=== PATIENT | female | born 1980 | race Caucasian/White ===

== ENCOUNTER 2025-07-19 06:02 | Day surgery (SDC) | payer OTHER, SELFPAY ==
[2025-07-06 09:21] VITALS: BMI 19.6
[2025-07-19] VITALS (8 sets, daily range): BP systolic 109–125; BP diastolic 78–87; PULSE 79–87; RESP 14–18; TEMP 36.2–36.6; O2SAT 100
--- OUTSIDE RECORDS SUMMARY | 2025-07-19 06:07 | XMS_ITS | Encounter Summary ---
Author Organization [facility] Address [address] [place] [address] Care Team Providers Care House Repairer Name Role Phone Jaqueline Lopez MD Primary Care Provider [phone] Jaqueline Lopez MD Unavailable [phone] Reason for Visit * Reason Onset Date Comments MEDICATION REFILL 07/11/2019 Encounter Details Date Type Department Care Team (Late st Contact Info) Description 07/11/2019 Refill [facility] - Family Medicine [address] [place] [phone] Jaqueline Lopez MD [address] [place] [address] MEDICATION REFILL Social History Tobacco Use Types Packs/Day Years Used Date Smoking Tobacco: Every Day Cigarettes 0.5 16 Smokeless Tobacco: Never Alcohol Use Standard Drinks/Week Comments Yes 0 (1 standard drink = 0.6 oz pur e alcohol) Comments No Sex and Gender Information Value Date Recorded Sex Assigned at Not on file Legal Sex Female 6:49 AM LEAD 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 Gender Identity Not on file Sexual Orientation Not on file documented as of this encounter Plan of Treatment Not on file documented as of this encounter Visit Diagnoses Diagnosis Sinus tachycardia Other specified cardiac dysrhythmias documented in this encounter Additional Health Concerns Infection Onset Date Last Indicated Resolved Time COVID-19 Confirmed 08/15/2021 08/15/2021 4:33 AM LEAD NUCLEAR 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 COVID-19 Confirmed 05/28/2022 05/28/2022202 2 4:33 AM CDT documented as of this encounter Care Teams House Repairer Relationship Specialty Start Date End Date Jaqueline Lopez MD [address] [place] [address] PCP - General Family Medicine 09/17/17 Jaqueline Lopez MD [address] [place] [address] PCP - Attributed-[facility] 09/14/19 04/29/21 documented as of this encounter
--- OUTSIDE RECORDS SUMMARY | 2025-07-19 06:07 | XMS_ITS | Encounter Summary ---
Author Organization [facility] Address [address] [place] [address] Care Team Providers Care Cosmetic Consultant Name Role Phone Jaqueline Lopez MD Primary Care Provider [phone] Jaqueline Lopez MD Unavailable [phone] Reason for Visit * Reason Onset Date Comments MEDICATION REFILL 09/04/2019 Encounter Details Date Type Department Care Team (Late st Contact Info) Description 09/04/2019 Refill [facility] - Family Medicine [address] [place] [phone] Jaqueline Lopez MD [address] [place] [address] MEDICATION REFILL Social History Tobacco Use Types Packs/Day Years Used Date Smoking Tobacco: Every Day Cigarettes 0.5 16 Smokeless Tobacco: Never Alcohol Use Standard Drinks/Week Comments Yes 0 (1 standard drink = 0.6 oz pur e alcohol) Comments No Sex and Gender Information Value Date Recorded Sex Assigned at Not on file Legal Sex Female 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 Gender Identity Not on file Sexual Orientation Not on file documented as of this encounter Plan of Treatment Not on file documented as of this encounter Visit Diagnoses Diagnosis Sinus tachycardia Other specified cardiac dysrhythmias documented in this encounter Additional Health Concerns Infection Onset Date Last Indicated Resolved Time COVID-19 Confirmed 08/15/2021 08/15/2021 4:33 AM WINDOW SHADE INSTALLER COVID-19 Confirmed 05/28/2022 05/28/2022202 2 4:33 AM CDT documented as of this encounter Care Teams Cosmetic Consultant Relationship Specialty Start Date End Date Jaqueline Lopez MD [address] [place] [address] PCP - General Family Medicine 09/17/17 Jaqueline Lopez MD [address] [place] [address] PCP - Attributed-[facility] 09/14/19 04/29/21 documented as of this encounter
--- OUTSIDE RECORDS SUMMARY | 2025-07-19 06:07 | XMS_ITS | Encounter Summary ---
Author Organization [facility] Address [address] [facility] [place] [address] Care Team Providers Care Electric Motor Winder Name Role Phone Jaqueline Lopez MD Primary Care Provider [phone] Jaqueline Lopez MD Unavailable [phone] Reason for Visit * Reason Onset Date Comments MEDICATION REFILL 01/10/2020 Encounter Details Date Type Department Care Team (Late st Contact Info) Description 01/10/2020 Refill [facility] - Family Medicine [address] [place] [phone] Jaqueline Lopez MD [address] [place] [address] MEDICATION REFILL Social History Tobacco Use Types Packs/Day Years Used Date Smoking Tobacco: Every Day Cigarettes 0.5 16 Smokeless Tobacco: Never Alcohol Use Standard Drinks/Week Comments Yes 0 (1 standard drink = 0.6 oz pur e alcohol) Comments No Sex and Gender Information Value Date Recorded Sex Assigned at Not on file Legal 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 Gender Identity Not on file Sexual Orientation Not on file documented as of this encounter Plan of Treatment Not on file documented as of this encounter Visit Diagnoses Diagnosis Depression, unspecified depression type Sinus tachycardia Other specified cardiac dysrhythmias documented in this encounter Additional Health Concerns Infection Onset Date Last Indicated Resolved Time COVID-19 Confirmed 08/15/2021 08/15/2021 4:33 AM AUTO PARTS CLERK COVID-19 Confirmed 05/28/2022 05/28/2022 4:33 AM CDT documented as of this encounter Care Teams Electric Motor Winder Relationship Specialty Start Date End Date Jaqueline Lopez MD [address] [place] [address] PCP - General Family Medicine 09/17/17 Jaqueline Lopez MD [address] [place] [address] PCP - Attributed[facility] 09/14/19 04/29/21 documented as of this encounter
--- OUTSIDE RECORDS SUMMARY | 2025-07-19 06:07 | XMS_ITS | Encounter Summary ---
Author Organization [facility] Address [address] [place] [address] Care Team Providers Care Veterinary Bacteriologist Name Role Phone Jaqueline Lopez MD Primary Care Provider [phone] Jaqueline Lopez MD Unavailable [phone] Reason for Visit * Reason Onset Date Comments MEDICATION REFILL 01/07/2020 Encounter Details Date Type Department Care Team (Late st Contact Info) Description 01/07/2020 Refill [facility] - Family Medicine [address] [place] [phone] Jaqueline Lopez MD [address] [place] [address] MEDICATION REFILL Social History Tobacco Use Types Packs/Day Years Used Date Smoking Tobacco: Every Day Cigarettes 0.5 16 Smokeless Tobacco: Never Alcohol Use Standard Drinks/Week Comments Yes 0 (1 standard drink = 0.6 oz pur e alcohol) Comments No Sex and Gender Information Value Date Recorded Sex Assigned at Not on file Legal Sex Female 6:49 AM PHOTOGRAPH 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 Gender Identity Not on file Sexual Orientation Not on file documented as of this encounter Plan of Treatment Not on file documented as of this encounter Visit Diagnoses Diagnosis Depression, unspecified depression type documented in this encounter Additional Health Concerns Infection Onset Date Last Indicated Resolved Time COVID-19 Confirmed 08/15/2021 08/15/2021 1 4:33 AM PHOTOGRAPH ENLARGER COVID-19 Confirmed 05/28/2022 05/28/2022 2 4:33 AM CDT documented as of this encounter Care Teams Veterinary Bacteriologist Relationship Specialty Start Date End Date Jaqueline Lopez MD [address] [place] [address] PCP - General Family Medicine 09/17/17 Jaqueline Lopez MD [address] [place] [address] PCP - Attributed[facility] 09/14/19 04/29/21 documented as of this encounter
--- OUTSIDE RECORDS SUMMARY | 2025-07-19 06:07 | XMS_ITS | Encounter Summary ---
Author Organization [facility] Address [address] [facility] [place] [address] Care Team Providers Care Hospice Office Coordinator Name Role Phone Jaqueline Lopez MD Primary Care Provider Reason for Visit * Reason Onset Date Comments MEDICATION REFILL 01/22/2023 Encounter Details Date Type Department Care Team (Late st Contact Info) Description 01/22/2023 Refill [facility] - Family Medicine [address] [place] [address] Jaqueline Lopez MD [address] [place] [phone] MEDICATION REFILL Social History Tobacco Use Types Packs/Day Years Used Date Smoking Tobacco: Every Day Cigarettes 0.5 16 Smokeless Tobacco: Never Alcohol Use Standard Drinks/Week Comments Yes 0 (1 standard drink = 0.6 oz pur e alcohol) PHQ-2 Answer Date Recorded PHQ2 TOTAL SCORE 0 02/19/2021 Comments No Sex and Gender Information Value Date Recorded Sex Assigned at Not on file Legal Sex Female 6:49 AM 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 LEVEL 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 Gender Identity Not on file Sexual Orientation Not on file documented as of this encounter Miscellaneous Notes * Telephone Encounter - Katherine Dodson LPN - 01/22/2023 2:27 PM CDT Last ov 02/19/21 documented in this encounter Plan of Treatment Not on file documented as of this encounter Visit Diagnoses Diagnosis Sinus tachycardia Other specified cardiac dysrhythmias PURVI (generalized anxiety disorder) Generalized anxiety disorder documented in this encounter Care Teams Hospice Office Coordinator Relationship Specialty Start Date End Date Jaqueline Lopez MD [address] [place] [address] PCP - General Family Medicine 09/17/17 documented as of this encounter
--- OUTSIDE RECORDS SUMMARY | 2025-07-19 06:07 | XMS_ITS | Encounter Summary ---
Author Organization [facility] Address [address] [place] [address] Care Team Providers Care Battery Mechanic Name Role Phone Jaqueline Lopez MD Primary Care Provider [phone] Jaqueline Lopez MD Unavailable [phone] Reason for Visit * Reason Onset Date Comments MEDICATION REFILL 08/19/2019 Encounter Details Date Type Department Care Team (Late st Contact Info) Description 08/19/2019 Refill [facility] - Family Medicine [address] [place] [phone] Jaqueline Lopez MD [address] [place] [phone] MEDICATION REFILL Social History Tobacco Use Types Packs/Day Years Used Date Smoking Tobacco: Every Day Cigarettes 0.5 16 Smokeless Tobacco: Never Alcohol Use Standard Drinks/Week Comments Yes 0 (1 standard drink = 0.6 oz pur e alcohol) Comments No Sex and Gender Information Value Date Recorded Sex Assigned at Not on file Legal Sex Female 6:49 AM EVP MARKETING Gender Identity Not on file Sexual Orientation Not on file documented as of this encounter Plan of Treatment Not on file documented as of this encounter Visit Diagnoses Not on filedocumented in this encounter Additional Health Concerns Infection Onset Date Last Indicated Resolved Time COVID-19 Confirmed 08/15/2021 08/15/2021 1 4:33 AM EVP MARKETING COVID-19 Confirmed 05/28/2022 05/28/2022 2 4:33 AM CDT documented as of this encounter Care Teams Battery Mechanic Relationship Specialty Start Date End Date Jaqueline Lopez MD [address] [place] [address] PCP - General Family Medicine 09/17/17 Jaqueline Lopez MD [address] [place] [address] PCP - Attributed-[facility] 09/14/19 04/29/21 documented as of this encounter
--- OUTSIDE RECORDS SUMMARY | 2025-07-19 06:07 | XMS_ITS | Data Portability ---
Author Organization [facility] Address [place] [address] Assessment No assessment recorded. Plan of Treatment Reminders Order Date Submit Date Provider Last Modified By Organization Details Last Modified Time Details Appointments None recorded. Lab CBC 2023 [facility] (Lab), [address], [place], [address], 4 10:54:38 CMP, serum or plasma 2023 024 [facility] (Lab), [address], [place], [address], 4 10:59:08 amylase, serum or plasma 2023 024 [facility] (Lab), [address], [place], [address], 4 10:59:12 lipase, serum or plasma 2023 024 [facility] (Lab), [address], [place], [address], 4 10:59:16 ESR (erythrocyt e sedimentati on rate), blood 2023 024 [facility] (Lab), [address], [place], [address], 11:05:23 Referral None recorded. Procedures None recorded. Surgeries None recorded. Imaging None recorded. Medication Orders None recorded. Patient TargetsNo targets recorded. Patient Instructions Encounter Date Encounter Id Patient Instructions Last Modified By Organization Details Last Modified Time 09/11/2017 [id number] Get the Holter Monitor placed in Cardio-Pulmonary department. No caffeine and continue cutting back on smoking. Stay well hydrated, and add a banana or an orange to your diet daily. Return here if worse or follow up with your doctor next week. [email or web address] Not available 09/12/2017 00:38:47 02/05/2024 [id number] diarrhea: care instructions [facility] Not available 02/05/2024 11:08:13 abdominal pain: care instructions [place] [id number] Not available 02/05/2024 11:08:13 push po fluids. BRAT diet today followed by bland diet next 72 hours. IF diarrhea persists drink 6-8 oz of Gatorade. Follow-up for persistent fever, unable to tolerate fluids, vomiting blood, blood in stools, increased ABD pain, or if not improving over next 3 days [facility] Not available 02/05/2024 11:15:27 If not improving over next 2-3 days, we can send in orders for stool specimen collections. [place] [id number] Not available 02/05/2024 11:15:15 Hospital Discharge Instructions Patient Instructions Get the Holter Monitor placed in Cardio-Pulmonary department. No caffeine and continue cutting back on smoking. Stay well hydrated, and add a banana or an orange to your diet daily. Return here if worse or follow up with your doctor next week. Patient Goals None recorded. Results Created Date Observation Date Name Description Value Unit Range Abnormal Flag Note LastModifiedBy Organization Detail LastModifiedTime 09/11/20 17 09/11/2017 parti al throm bopla stin time PTT 24.5 SEC 19.0-3 3.0 Not Available Not Available Not Available 09/11/20 17 09/11/2017 Tropo geri I.car diac [Mass /volu me] in Serum or Plasm a TROPONIN 0.014 ng/ml 0.000- 0.034 Tropo geri I Refer ence Range : >0.03 4 ng/mL [facility] Myoca rdial Damag e >0.12 0 Stron gly [facility] Myoca rdial Infar ction . Not Available Not Available Not Available 09/11/20 17 09/11/2017 Natri ureti c pepti de B [Mass /volu me] in Blood BN-PEPT. 6.6 pg/ml 0.0-10 0.0 Not Available Not Available Not Available 09/11/20 17 09/11/2017 Natri ureti c pepti de B [Mass /volu me] in Blood Unknown Analyte Amy l Refer ence Range = <100 pg/mL N.Y.H .A. HF Class ifica tion: Class I = 100-2 00 pg/mL Class II = 201-2 50 pg/mL Class III = 251-6 00 pg/mL Class IV = >600 pg/mL Not Available Not Available Not Available 09/11/20 17 09/11/2017 PT/IN R INR 1.01 0.80-1 .20 Indic ation INR __ Proph ylaxi s/lissy atmen t of: --Martín ous Throm bosis , Pulmo nary Embol ism 2.0 - 3.0 Preve ntion of syste trini embol ism from: --Tis alexis heart valve s 2.0 - 3.0 --Acu te myoca rdial infar ction (to prese nt syste trini embol ism*) 2.0 - 3.0 --Gloria vular heart disea se 2.0 - 3.0 --Atr ial Fibri llati on 2.0 - 3.0 Mecha nical prost hetic valve s (high risk) 2.5 - 3.5 __ *if oral antic oagul ant thera py is elect ed to preve nt recur rent myoca rdial infar ction , an INR of 2.5 - 3.5 is recom chema d, consi stent with Food and Drug Admin istra tion recom menda tions . Not Available Not Available Not Available 09/11/20 17 09/11/2017 Myogl obin [Mass /volu me] in Serum or Plasm a ARMAND 20.1 ng/ml 0.0-10 1.0 Not Available Not Available Not Available 09/11/20 17 09/11/2017 Thyro tropi n [Unit s/vol ume] in Serum or Plasm a TSH 2.79 uIu/m L 0.47-4 .68 Not Available Not Available Not Available 09/11/20 17 09/11/2017 Magne sium [Mass /volu me] in Serum or Plasm a MG 1.9 mg/dl 1.6-2. 3 Not Available Not Available Not Available 09/11/20 17 09/11/2017 CBC panel - Blood by Autom ated count WBC 9.8 10*3 3.9-10 .4 Not Available Not Available Not Available 09/11/20 17 09/11/2017 CBC panel - Blood by Autom ated count RBC 4.19 10*6 3.78-5 .29 Not Available Not Available Not Available 09/11/20 17 09/11/2017 CBC panel - Blood by Autom ated count HGB 13.4 g/dl 12.0-1 6.0 Not Available Not Available Not Available 09/11/20 17 09/11/2017 CBC panel - Blood by Autom ated count HCT 39.4 % 37.0-4 7.0 Not Available Not Available Not Available 09/11/20 17 09/11/2017 CBC panel - Blood by Autom ated count MCV 94.0 fl 82.0-1 00.0 Not Available Not Available Not Available 09/11/20 17 09/11/2017 CBC panel - Blood by Autom ated count MCH 32 pg 26-33 Not Available Not Availa ble Not Available 09/11/20 17 09/11/2017 CBC panel - Blood by Autom ated count MCHC 34 g/dl 31-34 Not Available Not Availa ble Not Available 09/11/20 17 09/11/2017 CBC panel - Blood by Autom ated count RDW 12.3 % 11.8-1 5.7 Not Available Not Available Not Available 09/11/20 17 09/11/2017 CBC panel - Blood by Autom ated count PLT 250 10*3 150-45 0 Not Available Not Available Not Available 09/11/20 17 09/11/2017 CBC panel - Blood by Autom ated count MPV 10.3 fl 8.7-12 .2 Not Available Not Available Not Available 09/11/20 17 09/11/2017 CBC panel - Blood by Autom ated count NEUT% 46.3 % 40.0-7 5.0 Not Available Not Available Not Available 09/11/20 17 09/11/2017 CBC panel - Blood by Autom ated count IMGRANS% 0.2 % 0.0-2. 0 Not Available Not Available Not Available 09/11/20 17 09/11/2017 CBC panel - Blood by Autom ated count LYMPH% 42.4 % 20.0-4 0.0 Not Available Not Available Not Available 09/11/20 17 09/11/2017 CBC panel - Blood by Autom ated count MONO% 8.3 % 0.0-10 .0 Not Available Not Available Not Available 09/11/20 17 09/11/2017 CBC panel - Blood by Autom ated count EOS% 2.1 % 0.0-4. 0 Not Available Not Available Not Available 09/11/20 17 09/11/2017 CBC panel - Blood by Autom ated count BASOS% 0.7 % 0.0-1. 0 Not Available Not Available Not Available 09/11/20 17 09/11/2017 CBC panel - Blood by Autom ated count ANC 4.54 10^3/ uL 1.50-8 .00 Not Available Not Available Not Available 09/11/20 17 09/11/2017 CBC panel - Blood by Autom ated count _ Not Available Not Availa ble Not Available 09/11/20 17 09/11/2017 Compr ehens raegan metab olic 2000 panel - Serum or Plasm a NA 142 mmol/ L 137-14 5 Not Available Not Available Not Available 09/11/20 17 09/11/2017 Compr ehens raegan metab olic 2000 panel - Serum or Plasm a K+ 3.3 mmol/ L 3.5-5. 1 Not Available Not Available Not Available 09/11/20 17 09/11/2017 Compr ehens raegan metab olic 2000 panel - Serum or Plasm a CL 102 mmol/ L 98-107 Not Available Not Available Not Avai lable 09/11/20 17 09/11/2017 Compr ehens raegan metab olic 2000 panel - Serum or Plasm a CO2 26 mmol/ L 22-30 Not Available Not Available Not Avai lable 09/11/20 17 09/11/2017 Compr ehens raegan metab olic 2000 panel - Serum or Plasm a GLUC 100 mg/dL 70-106 Not Available Not Availa ble Not Available 09/11/20 17 09/11/2017 Compr ehens raegan metab olic 2000 panel - Serum or Plasm a BUN 12.0 mg/dL 7.0-17 .0 Not Available Not Available Not Available 09/11/20 17 09/11/2017 Compr ehens raegan metab olic 2000 panel - Serum or Plasm a CREAT 0.7 mg/dl 0.5-1. 0 Not Available Not Available Not Available 09/11/20 17 09/11/2017 Compr ens raegan metab olic 2000 panel - Serum or Plasm a ALK.PHOS 64 U/L 38-126 Not Available Not Avail able Not Available 09/11/20 17 09/11/2017 Compr ehens raegan metab olic 2000 panel - Serum or Plasm a ALT 35 U/L 9-52 Not Available Not Availa ble Not Available 09/11/20 17 09/11/2017 Compr ehens raegan metab olic 2000 panel - Serum or Plasm a AST 24 U/L 14-36 Not Available Not Availa ble Not Available 09/11/20 17 09/11/2017 Compr ehens raegan metab olic 2000 panel - Serum or Plasm a ALB 4.8 g/dl 3.5-5. 0 Not Available Not Available Not Available 09/11/20 17 09/11/2017 Compr ehens raegan metab olic 2000 panel - Serum or Plasm a TBIL 0.50 mg/dl 0.20-1 .30 Not Available Not Available Not Available 09/11/20 17 09/11/2017 Compr ehens raegan metab olic 2000 panel - Serum or Plasm a TP 7.6 g/dl 6.3-8. 2 Not Available Not Available Not Available 09/11/20 17 09/11/2017 Compr ehens raegan metab olic 2000 panel - Serum or Plasm a CA 9.7 mg/dl 8.4-10 .2 Not Available Not Available Not Available 09/11/20 17 09/11/2017 Compr ehens raegan metab olic 2000 panel - Serum or Plasm a GAP 14.0 mmol/ L 8.0-16 .0 Not Available Not Available Not Available 09/11/20 17 09/11/2017 Compr ehens raegan metab olic 2000 panel - Serum or Plasm a B/C 17.14 7.00-3 0.00 Not Available Not Available Not Available 09/11/20 17 09/11/2017 Compr ehens raegan metab olic 2000 panel - Serum or Plasm a OSMO 283 mos/k g 273-30 4 Not Available Not Available Not Available 09/11/20 17 09/11/2017 Compr ehens raegan metab olic 2000 panel - Serum or Plasm a A/G RATIO 1.71 0.90-2 .30 Not Available Not Available Not Available 09/11/20 17 09/11/2017 Compr ehens raegan metab olic 2000 panel - Serum or Plasm a GLOBULIN 2.8 g/dl 2.2-3. 9 Not Available Not Available Not Available 09/11/20 17 09/11/2017 Compr ehens raegan metab olic 2000 panel - Serum or Plasm a GFR- OTHER Greate r Than 60 mL/mi n/1.7 3_m^2 Not Available Not Available Not Avai lable 09/11/20 17 09/11/2017 Compr ehens raegan metab olic 2000 panel - Serum or Plasm a GFR- AA Greate r Than 60 mL/mi n/1.7 3_m^2 It is recom chema d that for: GFR value s great er than 60 mL/mi n/1.7 3 sq.me ters - no addit ional renal evalu ation is requi red GFR value s less than 60 mL/mi n/1.7 3 sq.me ters - compl ete evalu ation for renal disea se GFR value s less than 60 mL/mi n/1.7 3 sq.me ters - consu ltati on with a Nephr ologi st Not Available Not Available Not Available 09/11/20 17 09/11/2017 Thyro xine (T4) free [Mass /volu me] in Serum or Plasm a T4 FREE 1.0 ng/dL 0.8-2. 2 Not Available Not Available Not Available 09/11/20 17 09/11/2017 Fibri n D-dim er FEU [Mass /volu me] in Plate let poor plasm a D-DIMER TRIAGE <100.0 ng/mL 0.0-39 9.0 Expec татьяна Range : Less Than 400 ng/mL Not Available Not Available Not Available 02/05/20 24 02/05/2024 Compr ehens raegan metab olic 2000 panel - Serum or Plasm a NA 136 mmol/ L 137-14 5 Not Available [facility] (Lab) [address], [place], [address], Not Available 02/05/20 24 02/05/2024 Compr ehens raegan metab olic 2000 panel - Serum or Plasm a K+ 3.8 mmol/ L 3.5-5. 1 Not Available [facility] (Lab) [address], [place], [address], Not Available 02/05/20 24 02/05/2024 Compr ehens raegan metab olic 2000 panel - Serum or Plasm a CL 104 mmol/ L 98-107 Not Available [facility] (Lab) [address], [place], [address], Not Available 02/05/20 24 02/05/2024 Compr ehens raegan metab olic 2000 panel - Serum or Plasm a CO2 23 mmol/ L 22-30 Not Available [facility] (Lab) [address], [place], [address], Not Available 02/05/20 24 02/05/2024 Compr ehens raegan metab olic 2000 panel - Serum or Plasm a GLUC 99 mg/dL 70-106 Not Available [facility] (Lab) [address], [place], [address], Not Available 02/05/20 24 02/05/2024 Compr ehens raegan metab olic 2000 panel - Serum or Plasm a BUN 13.0 mg/dL 7.0-17 .0 Not Available [facility] (Lab) [address], [place], [address], Not Available 02/05/20 24 02/05/2024 Compr ehens raegan metab olic 2000 panel - Serum or Plasm a CREAT 0.7 mg/dl 0.5-1. 0 Not Available [facility] (Lab) [address], [place], [address], Not Available 02/05/20 24 02/05/2024 Compr ehens raegan metab olic 2000 panel - Serum or Plasm a ALK.PHOS 70 U/L 38-126 Not Available [facility] (Lab) [address], [place], [address], Not Available 02/05/20 24 02/05/2024 Compr ehens raegan metab olic 2000 panel - Serum or Plasm a ALT 17 U/L 1-34 Not Available [facility] (Lab) [address], [place], [address], Not Available 02/05/20 24 02/05/2024 Compr ehens raegan metab olic 2000 panel - Serum or Plasm a AST 25 U/L 14-36 Not Available [facility] (Lab) [address] [place], [address], Not Available 02/05/20 24 02/05/2024 Compr ehens raegan metab olic 2000 panel - Serum or Plasm a ALB 4.7 g/dl 3.5-5. 0 Not Available [facility] (Lab) [address], [place], [address], Not Available 02/05/20 24 02/05/2024 Compr ehens raegan metab olic 2000 panel - Serum or Plasm a TBIL 1.20 mg/dl 0.20-1 .30 Not Available [facility] (Lab) [address], [place], [address], Not Available 02/05/20 24 02/05/2024 Compr ehens raegan metab olic 1999 panel - Serum or Plasm a TP 7.8 g/dl 6.3-8. 2 Not Available [facility] (Lab) [address], [place], [address], Not Available 02/05/20 24 02/05/2024 Compr ehens raegan metab olic 1999 panel - Serum or Plasm a CA 9.2 mg/dl 8.4-10 .2 Not Available [facility] (Lab) [address], [place], [address], Not Available 02/05/20 24 02/05/2024 Compr ehens raegan metab olic 2000 panel - Serum or Plasm a GAP 9.0 mmol/ L 6.0-16 .0 Not Available [facility] (Lab) [address], [place], [address], Not Available 02/05/20 24 02/05/2024 Compr ehens raegan metab olic 1999 panel - Serum or Plasm a B/C 18.57 7.00-3 0.00 Not Available [facility] (Lab) [address], [place], [address], Not Available 02/05/20 24 02/05/2024 Compr ehens raegan metab olic 1999 panel - Serum or Plasm a OSMO 272 mos/k g 273-30 4 Not Available [facility] (Lab) [address], [place], [address], Not Available 02/05/20 24 02/05/2024 Compr ehens raegan metab olic 2000 panel - Serum or Plasm a A/G RATIO 1.52 0.90-2 .30 Not Available [facility] (Lab) [address], [place], [address], Not Available 02/05/20 24 02/05/2024 Compr ehens raegan metab olic 1999 panel - Serum or Plasm a GLOBULIN 3.1 g/dl 2.2-3. 9 Not Available [facility] (Lab) [address], [place], [address], Not Available 02/05/20 24 02/05/2024 Compr ehens raegan metab olic 2000 panel - Serum or Plasm a GFR- AA Greate r Than 60 mL/mi n/1.7 3_m^2 Not Available [facility] (Lab) [address], [place], [address], Not Available 02/05/20 24 02/05/2024 Compr ehens raegan metab olic 2000 panel - Serum or Plasm a GFR- OTHER Greate r Than 60 mL/mi n/1.7 3_m^2 It is recom chema d that for: GFR value s great er than 60 mL/mi n/1.7 3 sq.me ters - no addit ional renal evalu ation is requi red GFR value s less than 60 mL/mi n/1.7 3 sq.me ters - compl ete evalu ation for renal disea se GFR value s less than 60 mL/mi n/1.7 3 sq.me ters - consu ltati on with a Nephr ologi st Not Available [facility] (Lab) [address], [place], [address], Not Available 02/05/20 24 02/05/2024 Eryth rocyt e [Sedi menta tion Rate] in Blood SED RATE 9 mm/hr 0-20 Not Available [facility] (Lab) [address], [place], [address], Not Available 02/05/20 24 02/05/2024 Lipas e [Enzy matic activ ity/v olume ] in Serum or Plasm a LIPASE 47 U/L 23-300 Not Available [facility] (Lab) [address], [place], [address], Not Available 02/05/20 24 02/05/2024 Amyla se [Enzy matic activ ity/v olume ] in Serum or Plasm a AMYL 61 U/L 30-110 Not Available [facility] (Lab) [address], [place], [address], Not Available 02/05/20 24 02/05/2024 CBC panel - Blood by Autom ated count WBC 8.3 10*3 3.9-10 .4 Not Available [facility] (Lab) [address], [place], [address], Not Available 02/05/20 24 02/05/2024 CBC panel - Blood by Autom ated count RBC 4.63 10*6 3.78-5 .29 Not Available [facility] (Lab) [address], [place], [address], Not Available 02/05/20 24 02/05/2024 CBC panel - Blood by Autom ated count HGB 14.9 g/dl 12.0-1 6.0 Not Available [facility] (Lab) [address], [place], [address], Not Available 02/05/20 24 02/05/2024 CBC panel - Blood by Autom ated count HCT 43.5 % 37.0-4 7.0 Not Available [facility] (Lab) [address], [place], [address], Not Available 02/05/20 24 02/05/2024 CBC panel - Blood by Autom ated count MCV 94.0 fl 82.0-1 00.0 Not Available [facility] (Lab) [address], [place], [address], Not Available 02/05/20 24 02/05/2024 CBC panel - Blood by Autom ated count MCH 32 pg 26-33 Not Available [facility] (Lab) [address], [place], [address], Not Available 02/05/20 24 02/05/2024 CBC panel - Blood by Autom ated count MCHC 34 g/dl 31-34 Not Available [facility] (Lab) [address], [place], [address], Not Available 02/05/20 24 02/05/2024 CBC panel - Blood by Autom ated count RDW 12.5 % 11.8-1 5.7 Not Available [facility] (Lab) [address], [place], [address], Not Available 02/05/20 24 02/05/2024 CBC panel - Blood by Autom ated count PLT 203 10*3 150-45 0 Not Available [facility] (Lab) [address], [place], [address], Not Available 02/05/20 24 02/05/2024 CBC panel - Blood by Autom ated count MPV 10.1 fl 8.7-12 .2 Not Available [facility] (Lab) [address], [place], [address], Not Available 02/05/20 24 02/05/2024 CBC panel - Blood by Autom ated count NEUT% 59.8 % 40.0-7 5.0 Not Available [facility] (Lab) [address], [place], [address], Not Available 02/05/20 24 02/05/2024 CBC panel - Blood by Autom ated count IMGRANS% 0.2 % 0.0-2. 0 Not Available [facility] (Lab) [address], [place], [address], Not Available 02/05/20 24 02/05/2024 CBC panel - Blood by Autom ated count LYMPH% 27.1 % 20.0-4 0.0 Not Available [facility] (Lab) [address], [place], [address], Not Available 02/05/20 24 02/05/2024 CBC panel - Blood by Autom ated count MONO% 11.0 % 0.0-10 .0 Not Available [facility] (Lab) [address], [place], [address], Not Available 02/05/20 24 02/05/2024 CBC panel - Blood by Autom ated count EOS% 1.2 % 0.0-4. 0 Not Available [facility] (Lab) [address], [place], [address], Not Available 02/05/20 24 02/05/2024 CBC panel - Blood by Autom ated count BASOS% 0.7 % 0.0-1. 0 Not Available [facility] (Lab) [address], [place], [address], Not Available 02/05/20 24 02/05/2024 CBC panel - Blood by Autom ated count ANC 4.98 10^3/ uL 1.50-8 .00 Not Available [facility] (Lab) [address], [place], [address], Not Available 02/05/20 24 02/05/2024 CBC panel - Blood by Autom ated count _ Not Available [facility] (Lab) [address], [place], [address], Not Available Result Notes None recorded. Problems Name Problem SNOMED Code Status Onset Date Resolution Date Notes Provider Name and Address Organization Details Recorded Time No current problems or disability 199521489 [facility] intermittent palpitations 447149189 Active 2016 Allison Roche MD [address] [place], [address], [facility] 00:35:59 Problem Notes None recorded. Procedures Surgical History Date Name Laterality Status Provider Name and Address Organization Details Recorded Time 09/12/20 17 Peripheral IV Removal completed Mariola Bob [facility] 09/12/2017 01:00:56 09/11/20 17 Peripheral IV Insertion completed Meg Saul RN [address] [place], [address], [facility] 09/11/2017 23:04:30 Tubal Ligation completed Collin Caceres [facility] 09/11/2017 22:58:48 Imaging Results None recorded. Procedure Notes Documentation Provider Name and Address Organization Details Recorded Time Procedure Documentation Peripheral IV InsertionIV Inserted: 09/11/2017 Time: 2200 Site: left antecubital Skin antisepsis: chlorhexidine Gauge: 20 Attempts: 1 Blood return: yes with blood drawn and sent to lab Flushed: without resistance Secured with: tape and transparent Complications: none Meg Saul RN [address] [place], [address], [facility] 09/11/2017 23:04:31 Procedure Documentation Peripheral IV RemovalProcedure explained to: patient IV removed with catheter tip intact. Site assessment: clear, no swelling Dressing: gauze Complications: none Mariola Bob [facility] 09/12/2017 01:01:03 Medical Equipment None Reported. Allergies No known drug allergies Medications Not known to be on any medication Vitals Date Recorded Body weight Oxygen saturation Oxygen saturation in Arterial blood by Pulse oximetry Pain severity - 0-10 verbal numeric rating [Score] - Reported Body mass index (BMI) Body height Heart rate Respiratory rate Body temperature Systolic And Diastolic Provider Name and Address Organization Details Last Updated DateTime 4 79583 g 100 % 100 % 7 20 kg/m2 177.8 cm 93 /min 17 /min 98.3 [degF] 145/95 mm[Hg] Paola Lane LPN [address] [place], [address], [facility] 4 10:11:35 Date Recorded Body height Oxygen saturation Oxygen saturation in Arterial blood by Pulse oximetry Heart rate Respiratory rate Body temperature Body mass index (BMI) Body weight Heart rate Systolic And Diastolic Provider Name and Address Organization Details Last Updated DateTime 7 172.72 cm 100 % 100 % 104 /min 20 /min 97.8 [degF] 23.5 kg/m2 74232 g 104 /min 130/86 mm[Hg] Collin márquez [facility] 7 22:54:09 Date Recorded Oxygen saturation Oxygen saturation in Arterial blood by Pulse oximetry Respiratory rate Heart rate Systolic And Diastolic Provider Name and Address Organization Details Last Updated DateTime 7 99 % 99 % 20 /min 95 /min 112/70 mm[Hg[facility] Date Recorded Pain severity - 0-10 verbal numeric rating [Score] - Reported Provider Name and Address Organization Details Last Updated DateTime 09/11/2017 0 Not Available [facility] 8 06:40:24 Date Recorded Oxygen saturation Oxygen saturation in Arterial blood by Pulse oximetry Heart rate Respiratory rate Oxygen saturation Oxygen saturation in Arterial blood by Pulse oximetry Respiratory rate Heart rate Oxygen saturation Oxygen saturation in Arterial blood by Pulse oximetry Respiratory rate Heart rate Provider Name and Address Organization Details Last Updated DateTime 7 98 % 98 % 96 /min 16 /min 100 % 100 % 20 /min 106 /min 99 % 99 % 18 /min 96 /min Mariola [facility] 7 01:06:00 Date Recorded Systolic And Diastolic Systolic And Diastolic Systolic And Diastolic Provider Name and Address Organization Details Last Updated DateTime 09/12/2017 112/79 mm[Hg] 119/74 mm[Hg] 112/70 mm[Hg] [facility] 09/12/2017 01:05:12 Date Recorded Pain severity - 0-10 verbal numeric rating [Score] - Reported Provider Name and Address Organization Details Last Updated DateTime 09/12/2017 0 Not Available [facility] 8 06:40:24 Social History Question Answer Notes LastModified by Organizat ion Details LastModified Time Tobacco Smoking Status Current Every Day Smoker Collin Caceres [facility] 09/11/2017 22:58:05 What Is Your Level Of Caffeine Consumption? Heavy Information not available 02/05/2024 What Is Your Code Status? 0 RAGHAV Information not available 02/06/2024 What Was The Date Of Your Most Recent Tobacco Screening? 02/05/2024 Information not available 02/05/2024 How Much Tobacco Do You Smoke? 0.5 PPD [email or web address] Information not available 09/11/2017 Sex: Unknown Functional Status Question Answer Note LastModified by Organizat ion Details LastModified Time Do you use any illicit or recreational drugs? No Information not available 02/05/2024 What is your level of alcohol consumption? Occasional Information not available 02/05/2024 Mental Status None recorded. Family History Nothing Reported. Medical History Condition Response Coronary Artery Disease N Other N Gout N Atrial Fibrillation N Blood Diseases N Hyperthyroidism N Emphysema N Lung Disease N Hypothyroidism N Depression Y COPD N Developmental or Behavioral Disorders N Defects or Inherited Disease N Pacemaker N Difficulty Swallowing N Gastrointestinal Disease N Deep Vein Thrombosis N Anxiety Disorder N Autoimmune disease N Pylonephritis N Family history of skin cancer N Difficulty seeing N Arthritis N Blood Clot N Acid Reflux (GERD) N Cancer N medical appliances N Stroke N Diabetes: Last eye exam? 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 Ear or Hearing Problems N history of skin cancer N Thyroid Problems N GI Problems N Anemia N Heart Attack (SC) N Diabetes N Bleeding Disorder N Seizures/Epilepsy N Tuberculosis N Myocardial Infarction N Congestive Heart Failure (CHF) N Diverticulitis N Abuse/Domestic Violence N Asthma N Atrial Flutter N Peripheral Vascular Disease N Bipolar Disorder N Warfarin Management N Hepatitis N Neuropathy N Heart Disease N Pulmonary Embolism N Hypertension N Osteoporosis N Gynecological History Statement/Question Response Date of LMP 01/18/2024 LMP Approximate Obstetrics History GPAL:G 0 P 0 0 0 0 Past Encounters Encounter ID Performer Location Encounter Start Date Encounter Closed Date Diagnosis/Indication Diagnosis SNOMED-CT Code Diagnosis ICD10 Code Diagnosis IMO Codes Diagnosis Note [id number] Allison Roche MD Emergency Room [address] [place] [address] 09/11/2017 22:47:00 09/12/2017 01:02:00 intermittent palpitations [id number] DR SWENSON ON STAFF OP Lab/Rad/C ardio Test [address] [place] [address] 02/05/2024 10:24:00 02/06/2024 00:59:00 Health Concerns Section Related Observation LastModified by Organization Detai ls LastModified Time None Recorded Concern Status LastModified by Organization Details LastModified Time None Recorded Advance Directives Directive None Recorded Payers Insurance Date Sequence Insurance Name Policy Number Policy Levy Covered Member ID Levy Member ID Guarantor Name 09/11/2017 1 *SELF PAY* Hi gerardo Michaud 02/05/2024 1 [facility] [id number] Lesly Michaud [id number] Lesly Michaud 02/05/2024 1 *SELF PAY* Me gerardo Michaud Notes Date Note Type Note Provider Name and Address Organization Details Recorded Time 02/05/2024 text/html intermittent abdominal pain with diarrhea for past 3 days. Pain is worse with eating. Patient reports diarrhea after eating and drinking. Is able to tolerate water only. NICO ALVARADO [address] [place], [address], [facility] 02/05/2024 11:15:47 OBGyn Episode No OBEpisode recorded.
--- OUTSIDE RECORDS SUMMARY | 2025-07-19 06:07 | XMS_ITS | Clinical Summary ---
Author Organization [facility] Address [address] [place] [address] Phone Care Team Providers Care Signals Analyst Name Role Phone Jaqueline Lopez MD Primary Care Provider [phone] Encounters Date Type Department Care Team Description 04/25/2025 2:57 PM CDT - 04/25/2025 11:59 PM CDT Hospital Encounter [facility] Mammography [address] [facility] [place] [address] Hai Be MD Discharge Disposition: Discharged to home or Selfcare 04/25/2025 Travel from Last 3 Months Social History Tobacco Use Types Packs/Day Years Used Date Smoking Tobacco: Never Assessed Comments Unknown Sex and Gender Information Value Date Recorded Sex Assigned at Female 04/26/2025 1:28 PM CDT Legal Sex Female 1:40 PM CDT Gender Identity Female 04/26/2025 1:28 PM CDT Sexual Orientation Not on file Plan of Treatment Health Maintenance Due Date Last Done Comments Hepatitis C Virus (HCV) Screening 1980 Hepatitis B Immunization (1 of 3 - 19+ 3-dose series) 1999 Pap Smear 2001 Human Papillomavirus (HPV) Immunization (1 - 3-dose SCDM series) 2007 Cervical Cancer Screening (CCS) 2010 HPV/Cotest 2010 Influenza Immunization (#1) 2025 08/17/2013 SARS-COV-2 Immunization ( season) 2025 Mammogram 04/25/2026 04/25/2025 Respiratory Syncytial Virus (RSV) Immunization (Adult) (1 - 1-dose 75+ series) 2055 TdaP Immunization Completed 08/17/2013 Discussion re Starting/Frequ ency of Mammograms Completed 04/25/2025 Meningococcal Immunization (ACWY) Aged Out No longer eligible based on patient's age to complete this topic Pneumococcal Immunization Combined Aged Out No longer eligible based on patient's age to complete this topic Rotavirus Immunization Aged Out No lo nger eligible based on patient's age to complete this topic Procedures Procedure Name Priority Date/Time Associated Diagnosis Comments FLORY SCREENING BILATERAL DIGITAL W CAD W DANY Routine 04/25/2025 3:22 PM CDT Screening breast examination from Last 3 Months Results * FLORY SCREENING BILATERAL DIGITAL W CAD W DANY (04/25/2025 3:22 PM CDT) Anatomical Region Laterality Modality breast Bilateral Mammography 04/25/2025 3:02 PM CDT Narrative 04/25/2025 10:26 PM CDT - FLORY SCREENING BILATERAL DIGITAL W CAD W DANY BILATERAL DIGITAL SCREENING MAMMOGRAM 3D/2D WITH CAD WITH MEDIOLATERAL OBLIQUE CRANIOCAUDAL: 04/25/2025 The study was acquired using full field digital technology and interpreted from soft copy. Current study was also evaluated with ICAD version 7.2. 2D digital mammographic views, as well as 3D digital tomosynthesis were performed in the CC and MLO projections. CLINICAL: Baseline. Routine screening. Patient has no complaints. COMPARISONS: No prior exams were available for comparison. BREAST TISSUE:There are scattered areas of fibroglandular density. FINDINGS: No significant masses, calcifications, or other findings are seen in either breast. IMPRESSION: BI-RAD 1 NEGATIVE There is no mammographic evidence of malignancy. A 1 year screening mammogram is recommended.(04/26/2026) A letter will be sent to the patient with these results. The patient will be entered into a reminder system with a target due date of 1 year for her next screening exam. Electronically signed by: Juliann shaver/jamari:04/25/2025 22:26:47 Breakfast Hostess(s): RT Eva(R)(CT)(MR)(M), [facility] letter sent: Normal Exam Reading location: [facility] Mammogram BI-RADS: Category 1: Negative Procedure Note Juliann Anderson MD - 04/26/2025 - FLORY SCREENING BILATERAL DIGITAL W CAD W DANY BILATERAL DIGITAL SCREENING MAMMOGRAM 3D/2D WITH CAD WITH MEDIOLATERALOBLIQUE CRANIOCAUDAL: 04/25/2025 The study was acquired using full field digital technology and interpretedfrom soft copy. Current study was also evaluated with ICAD version 7.2. 2D digital mammographic views, as well as 3D digital tomosynthesis were performed in the CC and MLO projections. CLINICAL: Baseline. Routine screening. Patient has no complaints. COMPARISONS: No prior exams were available for comparison. BREAST TISSUE:There are scattered areas of fibroglandular density. FINDINGS: No significant masses, calcifications, or other findings are seen ineither breast. IMPRESSION: BI-RAD 1 NEGATIVE There is no mammographic evidence of malignancy. A 1 year screeningmammogram is recommended.(04/26/2026) A letter will be sent to the patient with these results. The patient will be entered into a reminder system with a target due dateof 1 year for her next screening exam. Electronically signed by: Juliann shaver/jamari:04/25/2025 22:26:47 Breakfast Hostess(s): RT Eva(R)(CT)(MR)(M), [facility] letter sent: Normal Exam Reading location: [place] Mammogram BI-RADS: Category 1: Negative Hai Be MD IMG MAMMO ORDERABLES Maylin l Result from Last 3 Months Insurance [employer] Care Teams Signals Analyst Relationship Specialty Start Date End Date Jaqueline Lopze MD [address] [place] [address] PCP - General Family Medicine 04/25/25
--- OUTSIDE RECORDS SUMMARY | 2025-07-19 06:07 | XMS_ITS | Encounter Summary ---
Author Organization [facility] Address [address] [facility] [place] [address] Care Team Providers Care Lead Electrical Engineer Name Role Phone Jaqueline Lopez MD Primary Care Provider [phone] Jaqueline Lopez MD Unavailable [phone] Reason for Visit * Reason Onset Date Comments MEDICATION REFILL 06/19/2020 Encounter Details Date Type Department Care Team (Late st Contact Info) Description 06/19/2020 Refill 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 Gender Identity Not on file Sexual Orientation Not on file documented as of this encounter Plan of Treatment Not on file documented as of this encounter Visit Diagnoses Not on filedocumented in this encounter Additional Health Concerns Infection Onset Date Last Indicated Resolved Time COVID-19 Confirmed 08/15/2021 08/15/2021 1 4:33 AM SADDLE LINING STITCHER COVID-19 Confirmed 05/28/2022 05/28/2022 2 4:33 AM CDT documented as of this encounter Care Teams Lead Electrical Engineer Relationship Specialty Start Date End Date Jaqueline Lopez MD [address] [place] [address] PCP - General Family Medicine 09/17/17 Jaqueline Lopez MD [address] [place] [address] PCP - Attributed-[facility] 09/14/19 04/29/21 documented as of this encounter
--- OUTSIDE RECORDS SUMMARY | 2025-07-19 06:07 | XMS_ITS | Encounter Summary ---
Author Organization [facility] Address [address] [place] [address] Phone Care Team Providers Care Calender Worker Helper Name Role Phone Jaqueline Lopez MD Primary Care Provider [phone] Encounter Details Date Type Department Care Team (Late st Contact Info) Description 07/01/2024 Lab Requisition [facility] Services [address] [place] [address] [place] [address] Encounter for general adult medical examination without abnormal findings Social History Tobacco Use Types Packs/Day Years Used Date Smoking Tobacco: Never Assessed Comments Unknown Sex and Gender Information Value Date Recorded Sex Assigned at Female 04/26/2025 1:28 PM CDT Legal Sex Female 1:40 PM CDT Gender Identity Female 04/26/2025 1:28 PM CDT Sexual Orientation Not on file documented as of this encounter Plan of Treatment Not on file documented as of this encounter Procedures Procedure Name Priority Date/Time Associated Diagnosis Comments REFLEX, QUANTIFERON-TB GOLD PLUS, [facility] [id number] Routine 07/01/2024 9:53 AM CDT Encounter for general adult medical examination without abnormal findings QUANTIFERON-TB GOLD PLUS, [facility] [id number] Routine 07/01/2024 9:53 AM CDT Encounter for general adult medical examination without abnormal findings VARICELLA-ZOSTER V AB, IGG, [facility] [id number] Routine 07/01/2024 9:53 AM CDT Encounter for general adult medical examination without abnormal findings documented in this encounter Results * REFLEX, QUANTIFERON-TB GOLD PLUS, [facility] [id number] (07/01/2024 9:53 AM CDT) Pathologist [facility] [place] [id number], QUANTIFERON CRITERIA, [facility] Comment 07/05/2024 5:06 PM CDT [facility] Comment: QuantiFERON-TB Gold Plus is a qualitative indirect test for M tuberculosis infection (including disease) and is intended for use in conjunction with risk assessment, radiography, and other medical and diagnostic evaluations. The QuantiFERON-TB Gold Plus result is determined by subtracting the Nil value from either TB antigen (Ag) value. The Mitogen tube serves as a control for the test. [id number], QUANTIFERON TB1 AG VALUE, [facility] 0.02 IU/mL 07/05/2024 5:06 PM CDT [facility] [id number], QUANTIFERON TB2 AG VALUE, [facility] 0.02 IU/mL 07/05/2024 5:06 PM CDT [facility] [id number], QUANTIFERON NIL VALUE, [facility] 0.02 IU/mL 07/05/2024 5:06 PM CDT [facility] [id number], QUANTIFERON MIGOGEN VALUE, [facility] >10.00 IU/mL 07/05/2024 5:06 PM CDT [facility] Blood BLOOD SPECIMEN / Unknown Venipuncture / Unknown 07/01/2024 9:53 AM CDT 07/01/2024 9:54 AM CDT Narrative [facility] - 07/05/2024 5:06 PM CDT Performed at: 01 - [address] [id number] Button Broacher: James Hutton PhD, Phone: [phone] us Armin Watkins DO LAB SEND OUTS Final Result [place] [id number] [place] [address], [id number] * VARICELLA-ZOSTER V AB, IGG, [facility] [id number] (07/01/2024 9:53 AM CDT) [facility] VARICELLA ZOSTER IGG Reactive Non Reactive 07/02/2024 8:11 AM CDT [facility] Comment: Please note reference interval change A Reactive result is considered evidence of immunity to VZV. Reactive indicates that VZV IgG was detected consistent with previous infection and/or vaccination. A Non Reactive result indicates that VZV IgG was not detected suggesting that immunity has not been acquired. Blood Venipuncture / Unknown 07/01/2024 9:53 AM CDT 07/01/2024 9:54 AM CDT Narrative [facility] - 07/02/2024 8:11 AM CDT Performed at: [address] [place] [id number] Button Broacher: James Hutton PhD, Phone: [phone] Armin Watkins LAB SEND OUTS Final Result [facility] [address] [place] [address], [phone] * QUANTIFERON-TB GOLD PLUS, [facility] [id number] (07/01/2024 9:53 AM CDT) [facility] [id number], QUANTIFERON INCUBATION, [facility] Incubation performed. 07/05/2024 5:06 PM CDT [facility] [id number], QUANTIFERON -TB GOLD PLUS, [facility] Negative Negative 07/05/2024 5:06 PM CDT [facility] Comment: No response to M tuberculosis antigens detected. Infection with M tuberculosis is unlikely, but high risk individuals should be considered for additional testing (ATS/IDSA/CDC Clinical Practice Guidelines, 2017). The reference range is an Antigen minus Nil result of <0.35 IU/mL. Chemiluminescence immunoassay methodology Blood BLOOD SPECIMEN / Unknown Venipuncture / Unknown 07/01/2024 9:53 AM CDT 07/01/2024 9:54 AM CDT Narrative [facility] - 07/05/2024 5:06 PM CDT Performed at: 01 - [id number] [place], [place] [id number] Button Broacher: James Hutton PhD, Phone: [phone] us Armin Watkins DO LAB SEND OUTS Final Result Performing Organization Address City/State/[facility] Co de Phone Number [place] [id number] [place] [address], [phone] documented in this encounter Visit Diagnoses Diagnosis Encounter for general adult medical examination without abnormal findings Routine general medical examination at a health care facility documented in this encounter Care Teams Calender Worker Helper Relationship Specialty Start Date End Date Jaqueline Lopez MD [address] [place] [address] PCP - General Family Medicine 04/25/25 documented as of this encounter
--- OUTSIDE RECORDS SUMMARY | 2025-07-19 06:07 | XMS_ITS | Encounter Summary ---
Author Organization [facility] Address [address] [place] [address] Care Team Providers Care Nursing Program Chair Name Role Phone Jaqueline Lopez MD Primary Care Provider [phone] Jaqueline Lopez MD Unavailable [phone] Reason for Visit * Reason Onset Date Comments MEDICATION REFILL 01/07/2020 Encounter Details Date Type Department Care Team (Late st Contact Info) Description 01/07/2020 Refill [facility] - Family Medicine [address] [place] [phone] Jaqueline Lopez MD [address] [place] [address] MEDICATION REFILL Social History Tobacco Use Types Packs/Day Years Used Date Smoking Tobacco: Every Day Cigarettes 0.5 16 Smokeless Tobacco: Never Alcohol Use Standard Drinks/Week Comments Yes 0 (1 standard drink = 0.6 oz pur e alcohol) Comments No Sex and Gender Information Value Date Recorded Sex Assigned at Not on file 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 Gender Identity Not on file Sexual Orientation Not on file documented as of this encounter Plan of Treatment Not on file documented as of this encounter Visit Diagnoses Diagnosis Sinus tachycardia Other specified cardiac dysrhythmias documented in this encounter Additional Health Concerns Infection Onset Date Last Indicated Resolved Time COVID-19 Confirmed 08/15/2021 08/15/2021 4:33 AM SAWMILL PRODUCTION WORKER COVID-19 Confirmed 05/28/2022 05/28/2022202 2 4:33 AM CDT documented as of this encounter Care Teams Nursing Program Chair Relationship Specialty Start Date End Date Jaqueline Lopez MD [address] [place] [address] PCP - General Family Medicine 09/17/17 Jaqueline Lopez MD [address] [place] [address] PCP - Attributed-[facility] 09/14/19 04/29/21 documented as of this encounter
--- OUTSIDE RECORDS SUMMARY | 2025-07-19 06:07 | XMS_ITS | Encounter Summary ---
Author Organization [facility] Address [address] [place] [address] Care Team Providers Care Disease Management Nurse Name Role Phone Jaqueline Lopez MD Primary Care Provider [phone] Reason for Visit * Reason Onset Date Comments MEDICATION REFILL 10/03/2022 Encounter Details Date Type Department Care Team (Late st Contact Info) Description 10/03/2022 Refill [facility] - Family Medicine [address] [place] [address] Jaqueline Lopez MD [address] [place] [address] MEDICATION REFILL Social History Tobacco Use Types [...] on file 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
--- OUTSIDE RECORDS SUMMARY | 2025-07-19 06:07 | XMS_ITS | Clinical Summary ---
Author Organization [facility] Address [address] [place] [address] Care Team Providers Care Bottom Finisher Name Role Phone Jaqueline Lopez MD Primary Care Provider [phone] Source Comments [facility],non-owned Affiliates and Associated Physician Practices is amultiple site organization consisting of ambulatory clinics and hospital sitesin [place], [place], [place] and [place]. This disclosure is being madepursuant to the Care Everywhere program and may not contain all information available regarding this patient. Last updated 18.[facility] Allergies No known active allergies Medications * Be aware that medications may not be up to date on this document. Alwaysverify current medications with the patient. escitalopram (LEXAPRO) 20 MG tabletIndication s:PURVI (generalized anxiety disorder) Take 1 (one) tablet by mouth once daily 30 tablet 2 02/19/2021 Active atenolol (TENORMIN) 25 MG tabletIndication s:Sinus tachycardia Take 0.5 (one-half) tablet by mouth once daily 30 tablet 2 03/20/2022 Active buPROPion XL 24hr (Wellbutrin-XL) 150 MG tabletIndication s:PURVI (generalized anxiety disorder) Take 1 (one) tablet by mouth once daily 30 tablet 5 05/15/2022 Active Active Problems Problem Noted Date Diagnosed Date PURVI (generalized anxiety disorder) 06/19/2020 Sinus tachycardia 10/20/2017 Encounters Date Type Department Care Team Description 04/21/2025 Telephone [facility] - Family Medicine [address] [place] [address] Jaqueline Lopez MD General from Last 3 Months Immunizations Immunization Administration Dates Next Due DTaP VACCINE IM (6wk-6yrs) 05/25/1985,,02/13/1981,1980,1980 FLU VACCINE TRI IIV3 SPLIT P F IM (FLUVIRIN) 08/17/2013 MMR 01/15/1990,11/27/1981 POLIO OPV 06/04/1982, 2,02/13/1981,1980,1980 TD VACCINE 02/19/1994 TDAP (7yrs+) 08/17/2013 Family History Medical History Relation Name Comments Hypertension Father Diabetes Maternal Grandfather Diabetes Maternal Grandmother Cancer - Other Paternal Grandfather Relation Name Status Comments Father Maternal Grandfather Maternal Grandmother Paternal Grandfather Social History Tobacco Use Types Packs/Day Years Used Date Smoking Tobacco: Every Day Cigarettes 0.5 16 Smokeless Tobacco: Never Tobacco Cessation:Ready to Q uit: No; Counseling Given: Yes Alcohol Use Standard Drinks/Week Comments Yes 0 (1 standard drink = 0.6 oz pur e alcohol) PHQ-2 Answer Date Recorded PHQ2 TOTAL SCORE 0 02/19/2021 Comments No Sex and Gender Information Value Date Recorded Sex Assigned at Not on file Legal Sex Female 6:49 AM [employer] Gender Identity Not on file Sexual Orientation Not on file Last Filed Vital Signs Vital Sign Reading Time Taken Comments Blood Pressure 117/68 02/19/2021 1:14 PM CDT Pulse 88 02/19/2021 1:14 PM CDT Temperature 36.3 C (97.4 F) 02/19/2021 1:14 PM CDT Respiratory Rate 20 02/19/2021 1:14 PM CDT Oxygen Saturation 99% 02/19/2021 1:14 PM CDT Inhaled Oxygen Concentration - - Weight 77.6 kg (171 lb) 02/19/2021 1:14 PM CDT Height 177.8 cm (5' 10) 02/19/2021 1:14 PM CDT Body Mass Index 24.54 02/19/2021 1:14 PM CDT Plan of Treatment Health Maintenance Due Date Last Done Comments MAMMOGRAM 1980 HIV SCREENING 1995 HEPATITIS C SCREENING 08/07/1998 HEPATITIS B VACCINE (1 of 3 - 19+ 3-dose series) 1999 PNEUMOCOCCAL VACCINE (1 of 2 - PCV) 1999 PAP SMEAR 2001 HPV VACCINE (1 - 3-dose SCDM series) 2007 DTAP/TDAP/TD VACCINES (8 - Td or Tdap) 08/17/2023 08/17/2013, 02/19/1994, 05/25/1985, Additional history exists DEPRESSION SCREENING 09/14/2024 COVID-19 VACCINE ( season) 2025 INFLUENZA VACCINE (#1) 2025 8 (Done Outside Per Patient), 08/17/2013 LIPID TESTING 02/19/2026 02/19/2021 ZOSTER VACCINE (1 of 2) 2030 HIB VACCINE Aged Out No longer eligi ble based on patient's age to complete this topic MENINGOCOCCAL (Group B) VACCINE SHARED DECISION-MAKING Aged Out No longer eligible based on patient's age to complete this topic MENINGOCOCCAL GROUPS A/C/Y/W VACCINE Aged Out No longer eligible based on patient's age to complete this topic Procedures Procedure Name Priority Date/Time Associated Diagnosis Comments LIPID PROFILE Routine 02/19/2021 1:24 PM CDT PURVI (generalized anxiety disorder) from Last 3 Months or Most Recently Relevant to Health Maintenance Results * (ABNORMAL) LIPID PROFILE (02/19/2021 1:24 PM CDT) Cholesterol 174 <200 mg/dL 02/19/2021 7:45 PM CDT [facility] Triglycerides 173(H) <150 mg/dL 02/19/2021 7:45 PM CDT [facility] HDL Cholesterol 46 >40 mg/dL 7:45 PM CDT [facility] Chol HDL Ratio 3.8 1.0 - 6.0 02/19/2021 7:45 PM CDT [facility] LDL Calculated 93 65 - 130 mg/dL 02/19/2021 7:45 PM CDT [facility] VLDL Calculated 35(H) <=30 mg/dL 7:45 PM CDT [facility] Blood BLOOD SPECIMEN / Unknown Venipuncture / Unknown 02/19/2021 1:24 PM CDT 02/19/2021 1:24 PM CDT Narrative [facility] - 02/19/2021 7:45 PM CDT Lipid Profile Comment: CHOLESTEROL LEVEL..................CLINICAL INTERPRETATION LESS THAN 200 MG/DL..............................DESIRABLE 200-239 MG/DL..............................BORDERLINE HIGH GREATER THAN 240 MG/DL................................HIGH LDL-CHOLESTEROL LEVEL..............CLINICAL INTERPRETATION LESS THAN 100 MG/DL................................OPTIMAL 100-129 MG/DL.................................NEAR OPTIMAL GREATER THAN 160 MG/DL...........................HIGH RISK HDL RISK LEVEL GREATER THEN 60 MG/DL............................DECREASED 40-60 MG/DL........................................AVERAGE LESS THAN 40 MG/DL...............................INCREASED TRIGLYCERIDE LEVEL..................CLINICAL INTERPRETATION LESS THAN 150 MG/DL...............................DESIRABLE 150-199 MG/DL...............................BORDERLINE HIGH 200-499 MG/DL..........................................HIGH GREATER THAN 500..................................VERY HIGH THE NATIONAL CHOLESTEROL EDUCATION PROGRAM HAS SET THE ABOVE GUIDELINES (REFERANCE VALUES) FOR CHOLESTEROL AND HDL. RISK ASSOCIATED WITH CHOLESTEROL/HDL RATIOS RISK....................MALE RATIO.............FEMALE RATIO 1/2 AVERAGE.................<3.4.......................<3.3 LOW RISK.................... 4.0 ...................... 3.8 AVERAGE..................... 5.0 ...................... 4.5 2X AVERAGE.................. 9.5 ...................... 7.0 3X AVERAGE...................>23........................>11 us Jaqueline Lopez MD LAB - CHEMISTRY ORDERABLES Fin al Result [facility] [address] from Last 3 Months or Most Recently Relevant to Health Maintenance Insurance [employer] [facility] * Guarantor: E-SCREEN,SOIL Account Type Relation to Patient Date of Phone Billing Address Company Employer [employer] [address] Care Teams Bottom Finisher Relationship Specialty Start Date End Date Jaqueline Lopez MD [address] [place] [id number] PCP - General Family Medicine 09/17/17
--- OUTSIDE RECORDS SUMMARY | 2025-07-19 06:07 | XMS_ITS | Encounter Summary ---
Author Organization [facility] Address [address] [place] [address] Phone Care Team Providers Care Production Floater Name Role Phone Jaqueline Lopez MD Primary Care Provider [phone] Encounter Details Date Type Department Care Team (Late st Contact Info) Description 07/01/2024 Lab Requisition [facility] [address] [place] [address] [address] [place] [address] Encounter for general adult medical examination without [...] Procedure Name Priority Date/Time Associated Diagnosis Comments DRUG SCREEN NON-DOT SENDOUT Routine 07/01/2024 9:24 AM CDT Encounter for general adult medical examination without abnormal findings documented in this encounter Results * DRUG SCREEN NON-DOT SENDOUT (07/01/2024 9:24 AM CDT) REFERRAL TESTING SENDOUT 0 07/01/2024 11:00 AM CDT [facility] Comment:Automatically Result ed by a batch job. Urine URINE SPECIMEN / Unknown Non-Phlebotomy Collection / Unknown 07/01/2024 9:24 AM CDT 07/01/2024 9:24 AM CDT us Armin Watkins DO LAB SEND OUTS Final Result [facility] [address] [place] [address], documented in this encounter Visit Diagnoses Diagnosis Encounter for general adult medical examination without abnormal findings Routine general medical examination at a health care facility documented in this encounter Care Teams Production Floater Relationship Specialty Start Date End Date Jaqueline Lopez MD [address] [place] [id number] PCP - General Family Medicine 04/25/25 documented as of this encounter
[2025-07-19] MEDS: LACTATED RINGERS 1,000 ML 30 ML IV CONT ×2 (06:30→09:44)
[2025-07-19] MEDS: TRANEXAMIC ACID 1,000 MG/10 ML AMPUL 1000 MG IV PUSH (06:36)
--- NOTE | 2025-07-19 07:06 | WPDANESEPPF ---
Anes - Initial Pre Proc Eval Procedure: Operation Date: 07/19/25 07:30 Proposed Procedures p Bilateral Breast Augmentation Mammoplasty, - Hai Be MD s Bilateral Breast Mastopexy - Hai Be MD Date/Time: 07/19/25 07:06 Surgeon: Hai Be MD Pre Op Diagnosis: microasti, breast ptosis Patient Data Age: 44 Gender: F Height: 1.8 m Weight: 67.3 kg Last Vital Signs Temp 98 F 07/19/25 06:21 Pulse 84 07/19/25 06:21 Resp 15 07/19/25 06:21 BP 112/78 07/19/25 06:21 Pulse Ox 100 07/19/25 06:21 O2 Del Method Room Air 07/19/25 06:21 Allergies Allergy/AdvReac Type Severity Reaction Status Date / Time No Known Allergies Allergy Verified 07/19/25 06:20 Home Medications ?Medication ?Instructions ?Recorded ?Confirmed ?Type mecobalamin (vitamin B12) 1,000 1,000 mcg PO DAILY 07/06/25 07/19/25 History mcg chewable tablet multivitamin-folic acid 400 1 tablet PO DAILY 07/06/25 07/19/25 History mcg-biotin 2,000 mcg tablet (Vvny-Jgut-Wcblm (bzkqdbya-hhenq-[id number])) Patient hx anesthesia problems: post op nausea/vomiting Family hx anesthesia problems: none Results Review: All pre-operative results and documents have been reviewed as part of the pre-operative evaluation. PMFSH Social History Social History Smoking status: Former smoker Second hand tobacco smoke exposure: Yes Alcohol intake: current Drinks per week: 4 Substance use type: does not use Living arrangements: with family Spiritual care concerns: No Anes - Eval Final PreProcedure Day of Procedure 07/19/25 07:06 Heart: regular rate and rhythm Lungs: clear to auscultation Airway: Mallampati scale class 1 Neurological: alert and oriented Last oral intake: >/= 8 hours ASA classification: I Anesthetic plan: proceed Anesthesia type and monitoring: general Results Review: All pre-operative results and documents have been reviewed as part of the pre-operative evaluation. Informed Consent: The patient's anesthetic plan and its attendant risks and benefits were discussed with the patient/family/POA. Questions were solicited and answers provided to the satisfaction of the patient/family/POA.
[2025-07-19] MEDS: SCOPOLAMINE 1 MG PATCH 1 PATCH TRANSDERM (07:07)
--- NOTE | 2025-07-19 07:13 | SUR.PREOP ---
ABHI Marlow present with Dr. Be while marking patient. Pt's spouse also in pre op during marking.
--- NOTE | 2025-07-19 07:25 | P.OP_ITS ---
Procedure Note - Detailed Date of Procedure 07/19/25 Pre-op Diagnosis micromastia, breast ptosis Post-op Diagnosis Same Procedure Performed Bilateral augmentation mastopexy Surgeon Hai Be MD Anesthesia General Findings Bilateral Madan Porter SoftTouch 345cc Dual plane 1 Right: REF# [id number] SN [id number] Left: REF# [id number] SN [id number] Description of Procedure She is here today for bilateral breast augmentation mastopexy. Previously and again today the risks, benefits, alternatives were discussed in extensive detail. I wanted her to be very realistic about the risks involved as well as expectations. We discussed aftercare and what to monitor for. Made sure answered all of her questions to her satisfaction today and consent was obtained. Marked in the preoperative holding area with their verification. The patient was taken to the operating room placed supine on the operating table. Anesthesia was provided by anesthesiology. A surgical time-out was taken. She was prepped and draped in a standard sterile fashion. Tumescent was utilized laterally to provide field block Tegaderm nipple Humphreys were placed. A 15 blade used to make an incision just superior to the inframammary fold leaving a cusp of de-epithelized tissue at the t junction. Dissection was continued until the chest wall as identified. I incised the pectoralis major along its inferior border and completely released the inferior border leaving the medial border intact. I created a subpectoral pocket in the appropriate dimensions based on our preoperative planning for the implant. I then copiously irrigated with saline solution and verified a strict he mostasis. Next the use a triple antibiotic and Betadine containing solution to irrigate the pocket. I washed my gloves with the triple antibiotic and Betadine solution. We washed the implant immediately upon opening it with this solution and only opened it when we needed it. I used implant funnel and no-touch technique. The implant was introduced into the pocket using the funnel. Having verified positioning of the implant this was closed using 2-0 PDS. I tailor tacked the breast into position. Placed her in a sitting position. Verified the nipple-areolar location based on preoperative planning as well as intraoperative observations and measurements in full agreement. Suction lipectomy was completed laterally with a 4mm leslie cannula. This was based on preoperative planning, intraoperative observation, and rolling pinch which was in full agreement. This was minimal volume. She was placed supine. I de-epithelialized the pedicle. I then removed the inferior central portion of the breast need making sure the implant was well protected. I elevated medial and lateral tissue flaps as well for planned closure. Secured the IMF with 2-0 PDS. I closed along the IMF with 2-0 PDS. Along the vertical with 2-0 PDS. I closed around the areola and the vertical incision with 3-0 Monocryl. 3-0 Stratafix along the IMF. I finally closed everything with running subcuticular 4-0 Monocryl and steri strips / Brijjits. Fluffs and surgical bra were placed. Estimated Blood Loss 40 Drains No Packing No Pathology None sent Complications No immediate complications Condition Stable Disposition PACU
--- NOTE | 2025-07-19 07:25 | WPDHPUPDATE1 ---
History and Physical Update Update Date/Time: 07/19/25 07:25 History and Physical has been reviewed, including an updated exam of the patient. There are NO changes in the patient's condition. Risks, benefits, and alternatives have been discussed and questions answered. Patient agrees to proceed with procedure.
[2025-07-19] MEDS: ceFAZolin SODIUM 2 GM/20 ML SW SYRINGE IV PUSH (07:30)
[2025-07-19] MEDS: NACL 0.9% IRRIG POUR BOTTLE 900 ML, GENTAMICIN SULFATE INJ 160 MG, ceFAZolin 2 GM, POVI... IRRIGATION (08:00)
[2025-07-19] MEDS: LACTATED RINGERS IRRIG 1,000 ML, LIDOCAINE 1% LOCAL INJ 50 ML, EPINEPHrine HCL INJ 1 MG... INFILTRATE (08:00)
--- NOTE | 2025-07-19 08:24 | SUR.OPER ---
Implant: Right Breast- [id number] Left Breast- [id number]
[2025-07-19] MEDS: fentaNYL CITRATE INJ (*CRX) 100 MCG/2 ML VIAL 25 MCG IV PUSH ×2 (10:02→10:05)
[2025-07-19] MEDS: oxyCODONE HCL (*CRX) 5 MG TAB IR PO (11:10)
== END 2025-07-19 11:24 | disposition home or self-care (01) ==
PROVIDERS: Visit Provider Surgery Plastic and Reconstructive Surgery
PROC: (CPT 19325; principal; 2025-07-19 07:30)
PROC: (CPT 19316; 2025-07-19 07:30)
DX: Z41.1 Encounter for cosmetic surgery (principal); N64.82 Hypoplasia of breast; N64.81 Ptosis of breast
CPT/HCPCS: 19325; 19316; J3290